=== PATIENT | male | born 1995 | race Caucasian/White ===

== ENCOUNTER 2016-10-25 19:05 | Emergency (ER) | payer OTHER, BC ==
[~2016-10-25] VITALS: Ht 180.3 cm; Wt 74.2 kg
[2016-10-25 19:17] VITALS: BP 110/70; PULSE 90; TEMP 37; O2SAT 97; Ht 180.3 cm; Wt 74.2 kg
[2016-10-25] MEDS ORDERED: IBUPROFEN 600 MG TAB PO STA (19:25)
[2016-10-25] MEDS ORDERED: ESCI1TAB10 PO (19:35)
[2016-10-25] MEDS ORDERED: AMPH20TA2 PO (19:35)
--- NOTE | 2016-10-25 20:24 | DIAGNOSTIC IMAGING REPORT ---
RIGHT FIRST TOE 4 VIEWS CLINICAL HISTORY: First toe pain and injury. FINDINGS: 4 views of the right first toe are obtained. No prior studies are available for comparison at the time of dictation. The skeletal structures are well mineralized. No fracture is seen. The first metatarsophalangeal and interphalangeal joints are well-maintained. The overlying soft tissues are within normal limits. IMPRESSION: No fracture is seen in the right first toe. Electronically signed by: Hank Reilly M.D. 10/25/2016 8:22 PM Dictated Date/Time: 10/25/2016 8:20 PM
--- NOTE | 2016-10-25 20:32 | EMERGENCY ROOM VISIT NOTE ---
ED Visit Note First contact with patient: 19:20 CHIEF COMPLAINT: Right great toe injury HISTORY OF PRESENT ILLNESS: This 21-year-old male presents the ER with chief complaint of right great toe injury. 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 He states this occurred at approximately 11:15 AM. He was wearing a boot at the time. It was not steel toed. He states it did not seem that painful but as the day wore on the pain increased. He states when he took off the tissue he noticed there was blood coming from under his toenail. The patient has not taken anything for pain. The patient denies any prior fractures to the right great toe. The patient's tetanus is up-to-date. REVIEW OF SYSTEMS: 6 system review was performed and was negative unless stated otherwise in history of present illness. PMH: The patient is healthy; wisdom teeth removal SOCIAL HISTORY: Patient lives alone. The patient denies tobacco use but admits to occasional alcohol use. PHYSICAL EXAM: Vital Signs: Were reviewed Reviewed Nurse's notes. GEN.: Well- developed well-nourished 21-year-old white male appears in no acute distress. MENTAL Status: Alert and oriented 3. RIGHT GREAT TOE: No gross bony deformity noted. There is erythema and edema of the entire digit. There is also a subungual hematoma. There is dried blood surrounding the nail bed. No open lacerations noted. The remainder of the foot is unremarkable. EMERGENCY DEPARTMENT COURSE: Patient was evaluated. The patient was given Motrin 600 mg by mouth for pain. X-ray of the right great toe was ordered and interpreted by the radiologist and myself. DIAGNOSTICS:[~ rep ct add3]] RIGHT FIRST TOE 4 VIEWS CLINICAL HISTORY: First toe pain and injury. FINDINGS: 4 views of the right first toe are obtained. No prior studies are available for comparison at the time of dictation. The skeletal structures are well mineralized. No fracture is seen. The first metatarsophalangeal and interphalangeal joints are well-maintained. The overlying soft tissues are within normal limits. IMPRESSION: No fracture is seen in the right first toe. Electronically signed by: Hank Reilly M.D. 10/25/2016 8:22 PM Dictated Date/Time: 10/25/2016 8:20 PM The patient was informed of the findings. The toe was cleansed and antibiotic ointment and a bandage applied. The patient was offered a postop shoe but declined. The patient was discharged home in stable condition. DIAGNOSIS: Right great Toe contusion Right great subungual hematoma DISCHARGE INSTRUCTIONS & TREATMENT: Ice intermittently to the affected area over the next 24 hours. Keep foot elevated whenever possible over the next 24 hours. Wear loosefitting shoes. You may or may not loose that toenail. Ibuprofen 600 mg every 6 hours with food for pain. If symptoms persist or worsen, follow-up with your family doctor. Current/Historical Medications Scheduled Amphetamine-Dextroamphetamine 20MG (Adderall 20MG), 20 MG PO DAILY Escitalopram Oxalate (Lexapro), 20 MG PO DAILY Allergies Coded Allergies: No Known Allergies (Unverified , 10/25/16) Vital Signs Date Time Temp Pulse Resp B/P Pulse Ox O2 Delivery O2 Flow Rate FiO2 10/25/16 19:17 37.0 90 18 110/70 97 Room Air Medications Administered Medications (Trade) Dose Ordered Sig/[place] Route Start Time Stop Time Status Last Admin Dose Admin Ibuprofen (Motrin Tab) 600 mg NOW STAT PO 10/25/16 19:25 10/25/16 19:27 DC 10/25/16 19:30 600 MG Departure Information Referrals No Doctor, Assigned (PCP) Patient Instructions [facility]
== END 2016-10-25 20:42 | disposition home or self-care (01) ==
LOC: C.EDB 19:06 → C.EDD 20:42
DX: S90.111A Contusion of right great toe without damage to nail, initial encounter (principal); W22.8XXA Striking against or struck by other objects, initial encounter; Z79.899 Other long term (current) drug therapy